=== PATIENT | male | born 1945 | race American Indian/Alaskan Native ===

== ENCOUNTER 2017-04-08 13:46 | Outpatient (CLI) | payer MEDICARE ==
--- NOTE | 2017-04-08 14:52 | XRay Report ---
Bilateral knees: Pain. Standing images are obtained. There is normal alignment and joint spaces on the left with smooth articular surfaces. No swelling and no effusion noted. There is normal alignment of the right knee however there are periarticular spurs involving the medial compartment. There is subchondral cysts on the articular surface of the medial femoral condyle. There is a bony spur on the posterior femur just above the intercondylar notch possibly due to ligamentous or tendinous attachment. No swelling and no effusion identified. Impression: 1. Unremarkable left knee. 2. Degenerative medial compartment changes of the right knee.
== END 2017-04-08 13:47 | disposition home or self-care (01) ==
LOC: SPVIMAG 13:46
PROVIDERS: ATTEND Orthopaedic Surgery Sports Medicine
DX: M17.11 Unilateral primary osteoarthritis, right knee (principal); M25.861 Other specified joint disorders, right knee